=== PATIENT | female | born 1975 | race Two or more races ===

== ENCOUNTER 2016-09-30 20:17 | Emergency (ER) | payer MEDICAID ==
[~2016-09-30] VITALS: Ht 172.7 cm; Wt 127.0 kg
[2016-09-30 20:46] VITALS: BP 108/72
== END 2016-09-30 23:30 | disposition left against medical advice (07) ==
LOC: ER 20:24
DX: M54.5 Low back pain (principal); Z53.21 Procedure and treatment not carried out due to patient leaving prior to being seen by health care provider